=== PATIENT | female | born 1990 | race Caucasian/White ===

== ENCOUNTER 2021-09-23 13:05 | Emergency (ER) | payer OTHER ==
[~2021-09-23 13:05] MED LIST: FLEXERIL10 MG PO; IBUPROFEN800 MG PO; ZOFRAN4 MG PO
[2021-09-23] MEDS ORDERED: VENTOLIN HFA IN18 GM INH (14:54)
== END 2021-09-23 15:03 | disposition home or self-care (01) ==
LOC: FER 13:05
DX: U07.1 COVID-19 (principal); Z88.1 Allergy status to other antibiotic agents; F17.290 Nicotine dependence, other tobacco product, uncomplicated
CPT/HCPCS: 71045